=== PATIENT | male | born 1985 | race Caucasian/White ===

== ENCOUNTER 2024-06-01 07:58 | Outpatient (CLI) | payer OTHER | END 2024-06-01 07:59 | disposition home or self-care (01) | LOC: BICMRI 07:58 | PROVIDERS: ATTEND Family Medicine | DX: S40.022D Contusion of left upper arm, subsequent encounter (principal); R20.2 Paresthesia of skin; S46.212A Strain of muscle, fascia and tendon of other parts of biceps, left arm, initial encounter; S56.512A Strain of other extensor muscle, fascia and tendon at forearm level, left arm, initial encounter; M67.824 Other specified disorders of tendon, left elbow ==

== ENCOUNTER 2024-09-02 13:08 | Outpatient (CLI) | payer SELFPAY ==
[2024-09-02 13:54] LABS: #Basophils 0.07 10x3/uL (0.0-0.2); %Basophils 0.6 % (0.0-1.0); %Eosinophils 2.7 % (0.0-10.0); %Lymphocytes 32.5 % (21.0-51.0); %Monocytes 8.1 % (0.0-10.0); %Neutrophils 55.8 % (42.0-75.0); Hematocrit 47.1 % (42.0-52.0); Hemoglobin 15.4 g/dL (14.0-18.0); Mean Corpuscular HGB CONC 32.7 g/dL (32.0-36.0); Mean Corpuscular Hemoglobin 29.2 pg (27.0-31.0); Mean Corpuscular Volume 89.4 fL (78.0-98.0); Mean Platelet Volume 9.5 fL (7.4-10.4); Platelet Count 259 10x3/uL (130-400); RBC Distribution Width 13.1 % (11.5-14.5); Red Blood Cell (RBC) Count 5.27 mill/uL (4.70-6.10)
[2024-09-02 14:13] LABS: Anion Gap 12 mmol/L (10-20); BUN (Urea Nitrogen) 16 mg/dL (8.9-20.6); Calc. Creatinine Clearance 0 mL/min (70-130); Carbon Dioxide 25 mmol/L (22-29); Chloride 105 mmol/L (98-107); Estimated GFR 101; Glucose 97 mg/dL (70-105); Potassium 3.8 mmol/L (3.5-5.1); Sodium 138 mmol/L (136-145)
== END 2024-09-02 13:09 | disposition home or self-care (01) ==
LOC: LABBT 13:08
PROVIDERS: ATTEND Orthopaedic Surgery
DX: Z01.818 Encounter for other preprocedural examination (principal); G56.02 Carpal tunnel syndrome, left upper limb
CPT/HCPCS: 71046; 80048; 85025

== ENCOUNTER 2024-09-06 05:55 | Day surgery (SDC) | payer OTHER ==
[2024-09-02 13:18] VITALS: BMI 28.8
[2024-09-06] MEDS ORDERED: Lidocaine 1% (PF) 30 ML VIAL ONE (06:37)
[2024-09-06] MEDS ORDERED: PROPOFOL 20 ML ONE (06:52)
[2024-09-06] MEDS ORDERED: Ondansetron PF 4 MG/2 ML Vial ONE (06:52)
[2024-09-06] MEDS ORDERED: fentaNYL 50 mcg/mL 1 mL Vial ONE ×3 (06:52→09:14)
[2024-09-06] MEDS ORDERED: Dexamethasone 4 mg/ml Vial ONE (06:52)
[2024-09-06] MEDS ORDERED: CEFAZOLIN 2 GM VIAL ONE (06:53)
[2024-09-06] MEDS ORDERED: Albuterol HFA (OR) 200 PUFF INH ONE (08:16)
[2024-09-06] MEDS ORDERED: Meperidine HCl/PF 25 MG (1 mL) VIAL ONE (09:27)
[2024-09-06] MEDS ORDERED: Ketorolac Tromethamine 30 MG (1 mL) VIAL ONE (09:38)
[2024-09-06] MEDS ORDERED: HYDROcodone/Acetaminophen 5/325 mg Tablet ONE (10:05)
== END 2024-09-06 10:45 | disposition home or self-care (01) ==
LOC: SDC 05:55
PROVIDERS: ATTEND Orthopaedic Surgery
PROC: 01N54ZZ Release Median Nerve, Percutaneous Endoscopic Approach (ICD-10-PCS; principal; 2024-09-06)
PROC: 01N40ZZ Release Ulnar Nerve, Open Approach (ICD-10-PCS; principal; 2024-09-06)
PROC: 0L840ZZ Division of Left Upper Arm Tendon, Open Approach (ICD-10-PCS; principal; 2024-09-06)
DX: G56.02 Carpal tunnel syndrome, left upper limb (principal); G56.22 Lesion of ulnar nerve, left upper limb; M77.12 Lateral epicondylitis, left elbow; D21.12 Benign neoplasm of connective and other soft tissue of left upper limb, including shoulder; M67.922 Unspecified disorder of synovium and tendon, left upper arm; E66.9 Obesity, unspecified; Z91.038 Other insect allergy status; F17.200 Nicotine dependence, unspecified, uncomplicated; Z79.899 Other long term (current) drug therapy
CPT/HCPCS: 88304; A6223; J1100; J1885; J2175; J2405; J2704; J3010